=== PATIENT | male | born 1950 | race Caucasian/White ===

== ENCOUNTER 2022-02-12 13:00 | Outpatient (CLI) | payer MEDICARE, BC | END 2022-02-12 13:01 | disposition home or self-care (01) | LOC: LABBT 13:00 | PROVIDERS: ATTEND Otolaryngology Otolaryngic Allergy | DX: I69.891 Dysphagia following other cerebrovascular disease (principal); R13.11 Dysphagia, oral phase; R13.12 Dysphagia, oropharyngeal phase; Z20.822 Contact with and (suspected) exposure to COVID-19 | CPT/HCPCS: 87811 ==

== ENCOUNTER 2022-02-14 12:50 | Outpatient (CLI) | payer MEDICARE, BC | END 2022-02-14 12:51 | disposition home or self-care (01) | LOC: RAD 12:50 | PROVIDERS: ATTEND Otolaryngology Otolaryngic Allergy | DX: I69.891 Dysphagia following other cerebrovascular disease (principal); R13.12 Dysphagia, oropharyngeal phase | CPT/HCPCS: 74230 ==